=== PATIENT | female | born 1980 | race Caucasian/White ===

== ENCOUNTER 2016-10-17 23:46 | Emergency (ER) | payer SELFPAY ==
[~2016-10-17] VITALS: Ht 165.1 cm; Wt 120.2 kg
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
[2016-10-18 00:46] LABS: BILIRUBIN,URINE NEGATIVE (NEGATIVE); KETONES,URINE NEGATIVE (NEGATIVE); LEUKOCYTE ESTERASE ,URINE 3+ (NEGATIVE); NITRITE,URINE NEGATIVE (NEGATIVE); PH,URINE 6 (5-9); PROTEIN,URINE 4+ (NEGATIVE); UROBILINOGEN,URINE NORMAL (NORMAL)
[2016-10-18] MEDS ORDERED: RX-TRIMETH/SULFA. 160-800 MG (BACTRIM DS) TAB PPK#2 PO STA (01:14)
[2016-10-18] MEDS ORDERED: SULF1TAB35 PO (01:14)
[2016-10-18] MEDS ORDERED: PHEN-640 PO (01:14)
[2016-10-18] MEDS ORDERED: PHENAZOPYRIDINE 100 MG (PYRIDIUM) TABLET PO ONE (01:15)
[2016-10-18 01:24] VITALS: BP 138/80
== END 2016-10-18 01:25 | disposition home or self-care (01) ==
LOC: ER 23:49
DX: N39.0 Urinary tract infection, site not specified (principal); I10 Essential (primary) hypertension; M19.90 Unspecified osteoarthritis, unspecified site; E03.9 Hypothyroidism, unspecified; F41.9 Anxiety disorder, unspecified; F31.9 Bipolar disorder, unspecified; F17.210 Nicotine dependence, cigarettes, uncomplicated; Z87.448 Personal history of other diseases of urinary system
CPT/HCPCS: 80306; 81000; 84703; 87088; 87186; 99283